=== PATIENT | female | born 1985 ===

== ENCOUNTER 2016-10-11 17:42 | Emergency (ER) | payer OTHER ==
[2016-10-11 19:13] LABS: ABSOLUTE NEUTROPHIL COUNT 6.6 K/mm3 (1.8-7.7); BASO % 0.3 % (0.2-1.0); EOS # 0.2 (0.0-0.5); EOS % 2.2 % (0.9-2.9); HEMATOCRIT 44.5 % (37.0-47.0); HEMOGLOBIN 14.9 gm/l (12.0-16.0); IMM NEUT% 0.2 % (0-1); LYMPH # 2.2 (1.0-4.8); MEAN CELL VOLUME 89.4 fl (81.0-99.0); MEAN CORPUSCULAR HEMOGLOBIN 29.9 pg (27.0-31.0); MEAN CORPUSCULAR HGB CONC 33.5 g/dl (33.0-37.0); MEAN PLATELET VOLUME 10.5 fl (7.4-10.4); MONO # 0.8 (0.0-0.8); MONO % 8.1 % (4-12); NEUT % 67.2 % (43-75); PLATELET COUNT 290 K/mm3 (130-400); RED CELL DISTRIBUTION WIDTH 13.6 % (11.5-14.5)
--- NOTE | 2016-10-11 19:24 | RAD ---
CHEST - 2 VIEWS COMPARISON: None. HISTORY: Left-sided chest pain and numbness, with intermittent heaviness to the left arm and left side of the neck for 2 days. FINDINGS: Views: Frontal and lateral chest Lungs: Normal Heart and vessels: Normal Trachea and bronchi: Normal Mediastinum and antwan: Normal Costophrenic sulci: Normal Chest wall and bones: Normal. Upper abdomen: In the posterior left upper quadrant, 2.6 x 1.5 cm calcific density located lateral to the L2 vertebra IMPRESSION: 1. No acute finding in the chest. 2. Possible large stone in the left kidney.
[2016-10-11 19:41] LABS: ALB/GLOB RATIO 1.3 (>1.0); ALBUMIN 4.5 gm/dL (3.5-5.7); CALCIUM 9.5 mg/dL (8.6-10.3)
== END 2016-10-11 20:20 | disposition home or self-care (01) ==
LOC: ED 17:42
DX: R07.9 Chest pain, unspecified (principal); I10 Essential (primary) hypertension